=== PATIENT | female | born 1930 | race Caucasian/White ===

== ENCOUNTER 2016-06-27 11:17 | Outpatient (CLI) ==
[2016-05-02 17:49] VITALS: BMI 21.5
[2016-06-28] MEDS ORDERED: BENADRYL 25 MG in SODIUM CHLORIDE 100 ML IV STA ×2 (08:31→08:38)
[2016-06-28] MEDS ORDERED: TYLENOL PO STA (08:32)
[2016-06-28] MEDS ORDERED: LASIX IVP STA ×2 (11:47→15:21)
[2016-06-28 15:13] VITALS: BP 102/56; TEMP 97.9
== END 2016-06-28 15:47 | disposition home or self-care (01) ==
LOC: OUTPT 11:17
PROVIDERS: ATTEND Internal Medicine Hematology & Oncology
DX: D46.A Refractory cytopenia with multilineage dysplasia (principal); D64.9 Anemia, unspecified; I10 Essential (primary) hypertension; E03.9 Hypothyroidism, unspecified; D61.818 Other pancytopenia; K21.9 Gastro-esophageal reflux disease without esophagitis
CPT/HCPCS: 36415; 36430; 86850; 86900; 86922; 96365; 96366; 96367; 96375; 99211

== ENCOUNTER 2016-06-27 11:17 | Outpatient (CLI) ==
[2016-05-02 17:49] VITALS: BMI 21.5
[2016-06-27 12:39] LABS: HEMOGLOBIN 7.5 g/dl (12.0-16.0)
== END 2016-06-27 11:18 | disposition home or self-care (01) ==
LOC: LAB 11:17
PROVIDERS: ATTEND Internal Medicine Hematology & Oncology
DX: D46.A Refractory cytopenia with multilineage dysplasia (principal); D64.9 Anemia, unspecified; I10 Essential (primary) hypertension; E03.9 Hypothyroidism, unspecified; K21.9 Gastro-esophageal reflux disease without esophagitis; D61.818 Other pancytopenia
CPT/HCPCS: 85014; 85018; 86850; 86900; 86922

== ENCOUNTER 2016-08-01 09:40 | Outpatient (CLI) ==
[2016-05-02 17:49] VITALS: BMI 21.5
[2016-08-01 10:16] LABS: HEMOGLOBIN 6.8 g/dl (12.0-16.0); MEAN CORPUSCULAR HEMOGLOBIN 31.5 pg (27.0-31.0); MEAN CORPUSCULAR HGB CONC 33.3 (31.8-35.4); MEAN CORPUSCULAR VOLUME 94.4 fl (81.0-99.0); PLATELET COUNT 35 10^3/uL (140-440); RED BLOOD COUNT 2.16 10^6/ul (4.20-5.40)
[2016-08-01 10:37] LABS: WHITE BLOOD COUNT 1.35 K/ul (4.6-10.2)
[2016-08-01 10:39] LABS: HEMATOCRIT 20.4 % (37.0-47.0)
[2016-08-01 10:44] LABS: ANISOCYTOSIS 1+ (NOT PRESENT)
[2016-08-02] MEDS ORDERED: TYLENOL PO STA (08:21)
[2016-08-02] MEDS ORDERED: BENADRYL 25 MG in SODIUM CHLORIDE 100 ML IV STA (08:22)
--- NOTE | 2016-08-02 08:37 | ED.PDOC ---
Procedures - IV/Art Line Insertion Location: left forearm Type of Line: Peripheral IV Invasive Line/IV Catheter Gauge: 20 Number of Attempts: 1 Blood Return Positive: Yes Invasive Line/IV Flushes Without Difficulty: Yes Conscious Sedation - Pre-op Assessment Weight: 115 lb Surgical History: TONSILLS,RT LEG,--hysterectomy - Medical History Past Medical History: Thyroid, Other Other History: RLS,
[2016-08-02] MEDS ORDERED: LASIX IVP STA ×2 (12:08→15:22)
[2016-08-02 15:16] VITALS: BP 146/73; TEMP 98.2
== END 2016-08-02 08:05 | disposition home or self-care (01) ==
LOC: OUTPT 09:40
PROVIDERS: ATTEND Internal Medicine Hematology & Oncology
DX: D46.A Refractory cytopenia with multilineage dysplasia (principal); D64.9 Anemia, unspecified; I10 Essential (primary) hypertension; E03.9 Hypothyroidism, unspecified; D61.818 Other pancytopenia; K21.9 Gastro-esophageal reflux disease without esophagitis
CPT/HCPCS: 36415; 36430; 85007; 85025; 86850; 86900; 86922; 96365; 96366; 96376; 99211

== ENCOUNTER 2016-08-01 09:40 | Outpatient (CLI) ==
[2016-05-02 17:49] VITALS: BMI 21.5
== END 2016-08-01 09:41 | disposition home or self-care (01) ==
LOC: OUTPT 09:40 → LAB 09:41
PROVIDERS: ATTEND Internal Medicine Hematology & Oncology
DX: D46.A Refractory cytopenia with multilineage dysplasia (principal); D64.9 Anemia, unspecified; I10 Essential (primary) hypertension; E03.9 Hypothyroidism, unspecified; D61.818 Other pancytopenia; K21.9 Gastro-esophageal reflux disease without esophagitis
CPT/HCPCS: 36415; 85007; 85025; 86850; 86900; 86922

== ENCOUNTER 2016-08-08 09:41 | Outpatient (CLI) ==
[2016-05-02 17:49] VITALS: BMI 21.5
[2016-08-08 10:02] LABS: HEMATOCRIT 28.8 % (37.0-47.0); HEMOGLOBIN 9.7 g/dl (12.0-16.0); MEAN CORPUSCULAR HEMOGLOBIN 31.2 pg (27.0-31.0); MEAN CORPUSCULAR HGB CONC 33.7 (31.8-35.4); MEAN CORPUSCULAR VOLUME 92.6 fl (81.0-99.0); RED BLOOD COUNT 3.11 10^6/ul (4.20-5.40)
[2016-08-08 10:26] LABS: ALBUMIN/GLOBULIN RATIO 1.03; ANION GAP 14.3; BILIRUBIN,TOTAL 0.74 mg/dL (0.00-1.20); BUN/CREATININE RATIO 11.42; CALCIUM 9.5 mg/dL (8.2-10.2); CREATININE 0.7 mg/dL (0.60-1.30); POTASSIUM 4.3 mmol/L (3.5-5.10); TOTAL PROTEIN 7.9 g/dL (5.8-8.1)
[2016-08-08 10:32] LABS: WHITE BLOOD COUNT 1.81 K/ul (4.6-10.2)
[2016-08-08 10:33] LABS: ANISOCYTOSIS NOT PRESENT (NOT PRESENT); PLATELET COUNT 29 10^3/uL (140-440)
[2016-08-08 10:34] LABS: PLATELET ESTIMATE 30; RBC MORPHOLOGY COMMENT NORMAL
== END 2016-08-08 09:42 | disposition home or self-care (01) ==
LOC: LAB 09:41
PROVIDERS: ATTEND Internal Medicine
DX: D64.9 Anemia, unspecified (principal)
CPT/HCPCS: 36415; 80053; 85007; 85008; 85025

== ENCOUNTER 2016-08-16 08:44 | Outpatient (CLI) ==
[2016-05-02 17:49] VITALS: BMI 21.5
[2016-08-16 09:07] LABS: BASOPHILS % (AUTO) 0.5 % (0.0-3.0); EOSINOPHILS % (AUTO) 1.1 % (0.0-7.0); HEMATOCRIT 24.9 % (37.0-47.0); HEMOGLOBIN 8.3 g/dl (12.0-16.0); LYMPHOCYTES % (AUTO) 50.5 (10.0-50.0); MEAN CORPUSCULAR HEMOGLOBIN 31.1 pg (27.0-31.0); MEAN CORPUSCULAR HGB CONC 33.3 (31.8-35.4); MEAN CORPUSCULAR VOLUME 93.3 fl (81.0-99.0); MONOCYTES # (AUTO) 0.8 K/uL (0.4-2.0); MONOCYTES % (AUTO) 44.1 (0-10); NEUTROPHILS # (AUTO) 0.1 K/ul (2.0-6.9); NEUTROPHILS % (AUTO) 3.8; RED BLOOD COUNT 2.67 10^6/ul (4.20-5.40)
[2016-08-16 09:28] LABS: ALBUMIN 3.7 g/dL (3.4-5.0); ALBUMIN/GLOBULIN RATIO 0.9; ANION GAP 15.1; BILIRUBIN,TOTAL 0.55 mg/dL (0.00-1.20); BUN/CREATININE RATIO 15.15; CALCIUM 9.3 mg/dL (8.2-10.2); CREATININE 0.66 mg/dL (0.60-1.30); POTASSIUM 4.1 mmol/L (3.5-5.10); TOTAL PROTEIN 7.8 g/dL (5.8-8.1)
[2016-08-16 12:41] LABS: WHITE BLOOD COUNT 1.88 K/ul (4.6-10.2)
[2016-08-16 12:42] LABS: PLATELET COUNT 24 10^3/uL (140-440)
== END 2016-08-16 08:45 | disposition home or self-care (01) ==
LOC: LAB 08:44
PROVIDERS: ATTEND Internal Medicine
DX: C95.00 Acute leukemia of unspecified cell type not having achieved remission (principal); D64.9 Anemia, unspecified
CPT/HCPCS: 36415; 80053; 85025

== ENCOUNTER 2016-08-21 20:58 | Outpatient (CLI) ==
[2016-08-22 01:19] VITALS: BMI 22.1
== END 2016-08-21 20:59 ==
LOC: AMBL 20:58
PROVIDERS: ATTEND Internal Medicine Geriatric Medicine
DX: R55 Syncope and collapse (principal); R11.10 Vomiting, unspecified

== ENCOUNTER 2016-08-21 21:18 | Observation (INO) ==
[2016-08-21] MEDS ORDERED: ZOFRAN 4 MG/2 ML IVP STA (21:22)
[2016-08-21 21:34] LABS: HEMOGLOBIN 6.8 g/dl (12.0-16.0); MEAN CORPUSCULAR HEMOGLOBIN 31.5 pg (27.0-31.0); MEAN CORPUSCULAR VOLUME 92.6 fl (81.0-99.0); RED BLOOD COUNT 2.16 10^6/ul (4.20-5.40); WHITE BLOOD COUNT 2.53 K/ul (4.6-10.2)
[2016-08-21] MEDS ORDERED: SODIUM CHLORIDE 1,000 ML IV STA (21:38)
--- NOTE | 2016-08-21 21:51 | ED.PDOC ---
General ED Provider: Dr. MELITON LINN Chief Complaint: Syncope Stated Complaint: Pt was standing talking to guillermo when said she was having a hot flash. Sat down et slumped over. Had a glassof wine with supper. Was unresponsive approx 30 sec. Hx leukemia. Gets occasional blood transfusions. A/ O on ER arrival. Time Seen by Physician: 21:19 Mode of Arrival: Ambulance Information Source: Patient, Family Exam Limitations: No limitations Primary Care Provider: CRAIG ROBINS Nursing and Triage Documentation Reviewed and Agree: Yes Neurological Complaint Exam - Syncope/Near Syncope Complaint/Exam Onset/Duration: 10 sec Symptoms Are: Resolved Episodes Lasting: Seconds (10) Number of Episodes: 1 Frequency of Episodes: once Episodes Witnessed: Yes Loss of Consciousness: Yes Associated Head Trauma: No Activity at Onset: At rest Aggravating: None Alleviating: Reports: Spontaneous resolution Associated Signs and Symptoms: Reports: Vomiting, Diaphoresis, Lightheadedness, Dizziness, Weakness. Denies: Decreased oral intake, Diarrhea, GI blood loss, Short of air, Chest pain, Palpitations, AMS, Numbness, Headache, Remote head trauma, Recent head trauma Cardiac Risk Factors: Reports: None GI Bleed Risk Factors: Reports: None Dysrhythmia Risk Factors: Reports: None JVD Present: No Carotid Bruit Present: No Rectal Heme Positive: No Glascow Coma Scale (see protocol): 15 Nystagmus Present: No Gag Reflex Present: No Meningeal Signs Positive: No Focal Weakness: Present: None Focal Sensory Loss: Present: None Gait: Normal [id number]: Normal Findings Romberg Test Positive: No Babinski Sign: Negative Right, Negative Left Heel to Toe Normal: No Cameron-Hallpike Test Positive: No Differential Diagnoses: TIA, Hypoglycemia, Metabolic Reaction Quality Indicator For Non-Traumatic Chest Pain/Syncope: EKG Performed Review of Systems - Review Of Systems Constitutional: Reports: Weakness, Loss of appetite Eyes: Reports: No symptoms Ears, Nose, Mouth, Throat: Reports: No symptoms Respiratory: Reports: No symptoms Cardiac: Reports: No symptoms GI: Reports: Nausea, Vomiting : Reports: No symptoms Musculoskeletal: Reports: No symptoms Skin: Reports: No symptoms Neurological: Reports: Anxiety Endocrine: Reports: No symptoms Hematologic/Lymphatic: Reports: No symptoms All Other Systems: Reviewed and Negative Past Medical History - Past Medical History Endocrine: Reports: Hypothyroid, Dyslipidemia (medications) Cardiovascular: Reports: None Respiratory: Reports: None Hematological: Reports: None Gastrointestinal: Reports: None Genitourinary: Reports: None Neuro/Psych: Reports: None Musculoskeletal: Reports: None Cancer: Reports: Other (Leukemia ) Last Menstrual Period: unknown Other Pertinent Past Medical History: restless leg - Surgical History General Surgical History: Reports: Tonsillectomy, Orthopedic (TONSILLS,RT LEG, thyroid rls ) - Family History Family History: Reports: Unknown - Social History Smoking Status: Never smoker Hx Substance Use: No Alcohol Screening: Occasionally Lives: With family Physical Exam - Physical Exam Appearance: Well-appearing, No pain distress, Thin Eyes: JOLANTA, EOMI, Conjunctiva clear ENT: Ears normal, Nose normal, Oropharynx normal Neck: Supple Respiratory: Airway patent, Breath sounds clear, Breath sounds equal, Respirations nonlabored Cardiovascular: RRR, Pulses normal, No rub, No murmur GI/: Soft, Nontender, No masses, Bowel sounds normal, No Organomegaly Musculoskeletal: Normal strength, ROM intact, No edema, No calf tenderness Skin: Warm, Dry, Normal color Neurological: Sensation intact, Motor intact, Reflexes intact, Cranial nerves intact, Alert, Oriented Psychiatric: Mood appropriate, Anxious Interpretation - Radiology Interpretation Radiology Interpretation By: Radiologist Radiology Results: Negative Exam Interpreted: CT Scan (head ) - Welder Assembler Time of Welder Assembler Interpretation: 21:40 Rate: Normal Rhythm: Sinus Ectopy: None - EKG Interpretation Time of EKG #1: 21:38 Rate: Normal Rhythm: Sinus Ectopy: None [place]: [place] ST Segment: Normal Interpretation: Normal EKG Physician Notification - Case Discussed Physician Notified: Dr. Robins Time of Notification: 23:15 (Admit to [facility] for transfusion. ) Critical Care Note - Critical Care Note Total Time (mins): 15 Course - Course Hematology/Chemistry: 08/21/16 21:32 08/21/16 21:32 Orders, Labs, Meds: Lab Review 08/21/16 08/21/16 21:32 23:15 WBC 2.53 L RBC 2.16 L Hgb 6.8 L Hct 20.0 L* MCV 92.6 MCH 31.5 H MCHC 34.0 RDW Coeff of Freddy 16.8 H Plt Count 24 L* Immature Gran % (Auto) Surface Miner Neut % (Auto) Surface Miner Lymph % (Auto) Surface Miner [place] % (Auto) Surface Miner Eos % (Auto) Surface Miner Baso % (Auto) Surface Miner Immature Gran # (Auto) Surface Miner Neut # Surface Miner Lymph # Surface Miner [place] # Surface Miner Eos # Surface Miner Baso # Surface Miner Neutrophils % (Manual) 3.0 L Lymphocytes % (Manual) 52.0 H Monocytes % (Manual) 7.0 Blast Cells 58.0 H Sodium 131 L Potassium 3.9 Chloride 97 L Carbon Dioxide 26 Anion Gap 11.9 BUN 10 Creatinine 0.79 Estimated GFR (MDRD) 69.00 BUN/Creatinine Ratio 12.65 Glucose 102 Calcium 9.3 Total Bilirubin 0.36 AST 14 L ALT 7 L Alkaline Phosphatase 85 Troponin I < 0.0100 Total Protein 7.3 Albumin 3.5 Globulin 3.8 Albumin/Globulin Ratio 0.92 Blood Type O POSITIVE Antibody Screen Negative Crossmatch (AHG) See Detail Orders Category Date Time Status ADMIT PATIENT INPATIENT .TO [facility] (MONITORED BED) ADMISSION 08/21/16 23: 44 Active EKG-(ED ONLY) Stat CARDIO 08/21/16 21:22 Completed ACTIVITY .Up ad Janneth CARE 08/21/16 23:48 Active INTAKE & OUTPUT Q8HR CARE 08/21/16 23:44 Active PRBC LEUKOREDUCED ONCE CARE 08/21/16 23:07 Active TELEMETRY MONITORING TELE CARE 08/21/16 23:45 Active VITAL SIGNS Q4HR CARE 08/21/16 23:48 Active REGULAR DIET DIETARY 08/21/16 Breakfast Ordered ED IV/MEDIPORT/POWERPORT .ONCE EMERGENCY 08/21/16 21:22 Active ED ORTHOSTATIC VITAL SIGNS .ONCE EMERGENCY 08/21/16 21:22 Active BASIC METABOLIC PANEL DAILY@0600 LAB 08/22/16 06:00 Ordered BASIC METABOLIC PANEL DAILY@0600 LAB 08/23/16 06:00 Ordered BASIC METABOLIC PANEL DAILY@0600 LAB 08/24/16 06:00 Ordered BASIC METABOLIC PANEL DAILY@0600 LAB 08/25/16 06:00 Ordered BASIC METABOLIC PANEL DAILY@0600 LAB 08/26/16 06:00 Ordered BASIC METABOLIC PANEL DAILY@0600 LAB 08/27/16 06:00 Ordered BASIC METABOLIC PANEL DAILY@0600 LAB 08/28/16 06:00 Ordered BASIC METABOLIC PANEL DAILY@0600 LAB 08/29/16 06:00 Ordered BASIC METABOLIC PANEL DAILY@0600 LAB 08/30/16 06:00 Ordered BASIC METABOLIC PANEL DAILY@0600 LAB 08/31/16 06:00 Ordered BASIC METABOLIC PANEL DAILY@0600 LAB 09/01/16 06:00 Ordered BASIC METABOLIC PANEL DAILY@0600 LAB 09/02/16 06:00 Ordered BASIC METABOLIC PANEL DAILY@0600 LAB 09/03/16 06:00 Ordered BASIC METABOLIC PANEL DAILY@0600 LAB 09/04/16 06:00 Ordered BASIC METABOLIC PANEL DAILY@0600 LAB 09/05/16 06:00 Ordered BASIC METABOLIC PANEL DAILY@0600 LAB 09/06/16 06:00 Ordered BASIC METABOLIC PANEL DAILY@0600 LAB 09/07/16 06:00 Ordered BASIC METABOLIC PANEL DAILY@0600 LAB 09/08/16 06:00 Ordered BASIC METABOLIC PANEL DAILY@0600 LAB 09/09/16 06:00 Ordered BASIC METABOLIC PANEL DAILY@0600 LAB 09/10/16 06:00 Ordered CBC W/ AUTO DIFF DAILY@0600 LAB 08/22/16 06:00 Ordered CBC W/ AUTO DIFF DAILY@0600 LAB 08/23/16 06:00 Ordered CBC W/ AUTO DIFF DAILY@0600 LAB 08/24/16 06:00 Ordered CBC W/ AUTO DIFF DAILY@0600 LAB 08/25/16 06:00 Ordered CBC W/ AUTO DIFF DAILY@0600 LAB 08/26/16 06:00 Ordered CBC W/ AUTO DIFF DAILY@0600 LAB 08/27/16 06:00 Ordered CBC W/ AUTO DIFF DAILY@0600 LAB 08/28/16 06:00 Ordered CBC W/ AUTO DIFF DAILY@0600 LAB 08/29/16 06:00 Ordered CBC W/ AUTO DIFF DAILY@0600 LAB 08/30/16 06:00 Ordered CBC W/ AUTO DIFF DAILY@0600 LAB 08/31/16 06:00 Ordered CBC W/ AUTO DIFF DAILY@0600 LAB 09/01/16 06:00 Ordered CBC W/ AUTO DIFF DAILY@0600 LAB 09/02/16 06:00 Ordered CBC W/ AUTO DIFF DAILY@0600 LAB 09/03/16 06:00 Ordered CBC W/ AUTO DIFF DAILY@0600 LAB 09/04/16 06:00 Ordered CBC W/ AUTO DIFF DAILY@0600 LAB 09/05/16 06:00 Ordered CBC W/ AUTO DIFF DAILY@0600 LAB 09/06/16 06:00 Ordered CBC W/ AUTO DIFF DAILY@0600 LAB 09/07/16 06:00 Ordered CBC W/ AUTO DIFF DAILY@0600 LAB 09/08/16 06:00 Ordered CBC W/ AUTO DIFF DAILY@0600 LAB 09/09/16 06:00 Ordered CBC W/ AUTO DIFF DAILY@0600 LAB 09/10/16 06:00 Ordered CBC W/ AUTO DIFF Stat LAB 08/21/16 21:32 Completed COMPREHENSIVE METABOLIC PANEL Stat LAB 08/21/16 21:32 Completed MANUAL DIFFERENTIAL Stat LAB 08/21/16 21:32 Completed PRBC Transfusion [PACKED CELLS] Stat LAB 08/21/16 23:15 Results TROPONIN I Stat LAB 08/21/16 21:32 Completed TYPE AND SCREEN Stat LAB 08/21/16 23:15 Results 0.9 % Sodium Chloride [Saline Flush] MEDS 08/21/16 21:22 Ordered 1 syr IVF PRN PRN Diphenhydramine Inj [Benadryl] MEDS 08/21/16 23:44 Ordered 12.5 mg IVP Q6H PRN Hydrocodone Bit/Acetaminophen [[place] 5-325] MEDS 08/21/16 23:51 Ordered 1 tab PO Q6HR PRN Levothyroxine Sodium [Synthroid] MEDS 08/22/16 09:00 Ordered 25 mcg PO DAILY Ondansetron HCl/Pf [Zofran 4 mg/2 ml] MEDS 08/21/16 21:22 Discontinued 4 mg IVP ONCE STA Ondansetron HCl/Pf [Zofran 4 mg/2 ml] MEDS 08/21/16 23:44 Ordered 4 mg IVP Q6H PRN Ropinirole HCl [Requip] MEDS 08/22/16 09:00 Ordered 1 mg PO DAILY Simvastatin [Simvastatin] MEDS 08/22/16 09:00 Ordered 20 mg PO DAILY Sodium Chloride 0.9% [Sodium Chloride] 1,000 ml MEDS 08/21/16 21:38 Discontinued IV BOLUS RESUSCITATION STATUS Routine OTHERS 08/21/16 23:[address] HEAD W/O CONTRAST Stat RADS 08/21/16 21:21 Completed Medications Generic Name Dose Route Start Last Admin Trade Name Freq PRN Reason Stop Dose Admin Acetaminophen/Hydrocodone Bitart 1 tab 08/21/16 23:51 [place] 5-325 PO Q6HR PRN MODERATE PAIN Diphenhydramine HCl 12.5 mg 08/21/16 23:44 Benadryl IVP Q6H PRN Transfusion reaction Levothyroxine Sodium 25 mcg 08/22/16 09:00 Synthroid PO DAILY ROGER Non-Formulary Medication 20 mg 08/22/16 09:00 Simvastatin [Simvastatin] PO DAILY ROGER Ondansetron HCl 4 mg 08/21/16 23:44 Zofran 4 Mg/2 Ml IVP Q6H PRN Nausea / Vomiting Ropinirole HCl 1 mg 08/22/16 09:00 Requip PO DAILY ROGER Sodium Chloride 1 syr 08/21/16 21:22 08/21/16 23:50 Saline Flush IVF 1 syr PRN PRN Administration To flush IV Discontinued Medications Generic Name Dose Route Start Last Admin Trade Name Freq PRN Reason Stop Dose Admin Sodium Chloride 1,000 mls @ 1,000 mls/hr 08/21/16 21:38 08/21/16 23:49 Sodium Chloride IV 08/21/16 22:37 100 mls/hr BOLUS STA Administration Ondansetron HCl 4 mg 08/21/16 21:22 08/21/16 23:50 Zofran 4 Mg/2 Ml IVP 08/21/16 21:23 Not Given ONCE STA Vital Signs: Temp Pulse Resp BP Pulse Ox 08/21/16 21:24 84 136/63 08/21/16 21:23 78 123/52 L 08/21/16 21:19 98.4 F 76 20 136/63 100 Departure - Departure Time of Disposition: 23:40 Disposition: ADMITTED INPATIENT Discharge Problem: Syncope Anemia Qualifiers: Anemia type: other cause Other causes of anemia: chronic disease, other Qualifier Code: (D63.8) 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
[2016-08-21 22:01] LABS: PLATELET COUNT 24 10^3/uL (140-440)
[2016-08-21 22:02] LABS: ANISOCYTOSIS NOT PRESENT (NOT PRESENT)
[2016-08-21 22:06] LABS: ALANINE AMINOTRANSFERASE 7 U/L (12-78); ALBUMIN 3.5 g/dL (3.4-5.0); ALBUMIN/GLOBULIN RATIO 0.92; ALKALINE PHOSPHATASE 85 U/L (53-141); ANION GAP 11.9; ASPARTATE AMINO TRANSFERASE 14 U/L (15-37); BILIRUBIN,TOTAL 0.36 mg/dL (0.00-1.20); BLOOD UREA NITROGEN 10 mg/dL (7-18); BUN/CREATININE RATIO 12.65; CALCIUM 9.3 mg/dL (8.2-10.2); CARBON DIOXIDE 26 mmol/L (23-31); CHLORIDE 97 mmol/L (98-107); CREATININE 0.79 mg/dL (0.60-1.30); GLUCOSE 102 mg/dL (82-115); POTASSIUM 3.9 mmol/L (3.5-5.10); SODIUM 131 mmol/L (136-145); TOTAL PROTEIN 7.3 g/dL (5.8-8.1)
--- NOTE | 2016-08-21 22:17 | CT ---
EXAM: CT head without contrast. HISTORY: Syncope. PROCEDURE: Contiguous axial CT images of the head without contrast with coronal and sagittal reform ats. FINDINGS: There is mild diffuse cerebral atrophy. The ventricles and basal cisterns are normal in size and configuration. No evidence of mass or midline shift. No intracranial hemorrhage or eviden ce of large vessel infarct. No extra-axial fluid collection. The paranasal sinuses and mastoid air cells are well-aerated. Impression: No intracranial hemorrhage or evidence of large vessel infarct. Mild diffuse cerebral atrophy.
[2016-08-21] MEDS ORDERED: BENADRYL IVP PRN (23:44)
[2016-08-21] MEDS ORDERED: ZOFRAN 4 MG/2 ML IVP PRN (23:44)
[2016-08-21] MEDS ORDERED: NORCO 5-325 PO PRN (23:51)
[2016-08-22 01:19] VITALS: BMI 22.1
[2016-08-22] MEDS ORDERED: SYNTHROID PO SCH ×2 (06:30→09:00)
[2016-08-22] MEDS ORDERED: NON-FORMULARY MEDICATION (Simvastatin [Simvastatin] 20 MG) PO SCH ×22 (09:00)
[2016-08-22 10:10] LABS: HEMATOCRIT 30.4 % (37.0-47.0); HEMOGLOBIN 10.5 g/dl (12.0-16.0); MEAN CORPUSCULAR HEMOGLOBIN 30.4 pg (27.0-31.0); MEAN CORPUSCULAR HGB CONC 34.5 (31.8-35.4); MEAN CORPUSCULAR VOLUME 88.1 fl (81.0-99.0); RED BLOOD COUNT 3.45 10^6/ul (4.20-5.40); WHITE BLOOD COUNT 2.87 K/ul (4.6-10.2)
[2016-08-22 10:40] LABS: BUN/CREATININE RATIO 9.85; CALCIUM 9.4 mg/dL (8.2-10.2); CREATININE 0.71 mg/dL (0.60-1.30); PLATELET COUNT 24 10^3/uL (140-440)
[2016-08-22 10:41] LABS: ANISOCYTOSIS NOT PRESENT (NOT PRESENT)
[2016-08-22 11:30] VITALS: BP 146/72; TEMP 97.8
--- NOTE | 2016-08-22 11:44 | PCM.PROG ---
Addendum entered and electronically signed by MARIA C JOHN 08/23/16 08:58: ASSESSMENT: 3. SEVERE ANEMIA Original Note: Attending Provider: ATTENDING PROVIDER: Dr. CRAIG ROBINS DATE OF SERVICE: 08/22/16 SUBJECTIVE: This 85 year old WHITE/ F was hospitalized 08/22/16. The patient is hospitalized with severe anemia. 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 The patient's psychiatric social worker/oncologist, Dr. Melton, has recommended Hospice due to the stage of her leukemia. The patient presented yesterday with weakness. Hemoglobin was 6.8 with hematocrit of 20. The patient was given two units of PRBCs. REVIEW OF SYSTEMS: CONSTITUTIONAL: No night sweats. No fatigue, malaise, lethargy. No fever or chills. HEENT: Eyes: No visual changes. No eye pain. No eye discharge. ENT: No runny nose. No epistaxis. No sinus pain. No odynophagia. No congestion. RESPIRATORY: No cough, no congestion. No hemoptysis. CARDIOVASCULAR: No angina symptoms. No CHF symptoms. No atypical chest pain for CAD. No palpitations. No shortness of breath. GASTROINTESTINAL: No abdominal pain. No nausea or vomiting. No diarrhea or constipation. No hematemesis. No hematochezia. GENITOURINARY: No urgency. No frequency. No dysuria. No hematuria. No obstructive symptoms. No discharge. No pain. No significant abnormal bleeding. MUSCULOSKELETAL: No musculoskeletal pain; no joint swelling. NEUROLOGICAL: Awake, alert, oriented to time, place and person. No headache. No neck pain. No syncope. No seizures. No dizziness. PSYCHIATRIC: Not anxious. No depression. No suicidal thoughts. No homicidal thoughts. SKIN: No rash. No lesions. No wounds. ENDOCRINE: No unexplained weight loss. No weight gain. HEMATOLOGIC/LYMPHATIC: Anemia. No purpura. No petechiae. No prolonged or excessive bleeding. No palpable lymph nodes. PHYSICAL EXAMINATION: GENERAL: The patient is awake, alert and oriented, lying flat in bed in no distress. VITAL SIGNS: Temperature 98.0 F, Pulse 76, Respiratory Rate 20, BP 138/76, Pulse Ox 98% HEENT: Head normocephalic, atraumatic. Eyes: Extraocular muscles are intact. Pupils are equal, round and reactive to light and accommodation. Ears: No lesions. Nose appeared normal. Throat: No exudate or erythema. NECK: Supple. No JVD, no carotid bruit. No lymphadenopathy or thyromegaly. LUNGS: Clear to auscultation. Percussion note normal. Chest symmetrical. HEART: S1, S2, no S3. No murmurs. No cyanosis or clubbing. No ascites. Pulses: Dorsalis pedis and posterior tibial pulses +1 to +2 both sides. ABDOMEN: Soft. Non-tender. Bowel sounds active. No CVA tenderness. No mass felt. EXTREMITIES: No edema. Full range of motion of all extremities, equal. NEUROLOGIC: No focal deficit. Cranial nerves II through XII are grossly intact. No headache, no double vision or headache. SKIN: Not dry. Intact. Turgor-normal. LYMPHATIC: No palpable lymph nodes/no lymphedema. MUSCULOSKELETAL: Normal joints with no swelling. Muscle tone is normal. ASSESSMENT: 1. 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 2. Leukopenia, thrombocytopenia. PLAN: 1. Will put on reverse isolation. 2. Will check hemoglobin and hematocrit and CBC with differential after transfusion. 3. Discharge home with supportive measures. Plan and coordination of the patient's care discussed in the presence of Cps Team Lead and nurse. EDUCATION: Discussed plan of care and treatment with the patient. The patient voices understanding and is in agreement. CONDITION: Stable; the patient's prognosis is extremely poor. SCRIBED BY: MARIA C JOHN Systems Accountant scribed while in presence of service performed by Dr. CRAIG ROBINS on 08/22/16 ([id number])
[2016-08-22] MEDS ORDERED: REQUIP PO SCH (21:00)
[2016-08-22] MEDS ORDERED: ZOCOR PO SCH (21:00)
--- NOTE | 2016-08-23 09:11 | SSS ---
DATE OF SERVICE: 08/22/16 ADMISSION/08/22/16 DISCHARGE -OBSERVATION REASON FOR HOSPITALIZATION: Anemia. HISTORY OF PRESENT ILLNESS: Xnszfe-bam-hull-old white female came to the emergency room with syncopal episode, which was not complete syncope. She felt like she was going to pass out and slumped over but did not lose consciousness, did not hit herself. She probably was a little unresponsive to some extent for 15 to 20 seconds. The patient has history of anemia and acute myelocytic leukemia with 60% or more blasts. She has been given up by hematology/oncologist and was recommended Hospice. The patient's family, daughters, have decided not to accept the Hospice and continue symptomatic treatment along with need for blood transfusion and they want the patient to have this. They do not want any further treatment for thrombocytopenia or any other problems except for blood transfusion. REVIEW OF SYSTEMS: CONSTITUTIONAL: Syncopal type of episode that brought the patient to the emergency room. Positive for weakness and fatigue. No night sweats. No fever or chills. HEENT: Eyes: No visual changes. No eye pain. No eye discharge. ENT: No runny nose. No epistaxis. No sinus pain. No sore throat. No odynophagia. No ear pain. No congestion. RESPIRATORY: No cough, no congestion. No hemoptysis. CARDIOVASCULAR: No angina symptoms. No CHF symptoms. No atypical chest pain for CAD. No palpitations. No shortness of breath. No PND, no orthopnea. GASTROINTESTINAL: No abdominal pain. No nausea or vomiting. No diarrhea or constipation. No hematemesis. No hematochezia. GENITOURINARY: No urgency. No frequency. No dysuria. No hematuria. No obstructive symptoms. No discharge. No pain. No significant abnormal bleeding. MUSCULOSKELETAL: No musculoskeletal pain. No joint swelling. NEUROLOGICAL: Awake, alert, oriented to time, place and person. No headache. No neck pain. No syncope. No seizures. No dizziness. PSYCHIATRIC: Not anxious. No depression. No suicidal thoughts. No homicidal thoughts. SKIN: No rash. No lesions. No wounds. ENDOCRINE: No unexplained weight loss. No weight gain. HEMATOLOGIC/LYMPHATIC: No anemia. No purpura. No petechiae. No prolonged or excessive bleeding. No palpable lymph nodes. PAST MEDICAL/SURGICAL HISTORY: 1. Acute myelocytic leukemia with blastic phase 2. Hypothyroidism 3. Dyslipidemia 4. Generalized osteoarthritis PERSONAL/FAMILY HISTORY/SOCIAL HISTORY: The patient is , lives with her . Nonsmoker. No alcohol abuse. Three daughters, which take care of her. The patient is independent of all activities of daily living. PHYSICAL EXAMINATION: GENERAL: The patient is oriented to time, place and person. VITAL SIGNS: Temperature 98.4, pulse 80/min, respiratory rate 20, BP 136/63, pulse ox 100%. HEENT: Head normocephalic, atraumatic. Eyes: Extraocular muscles are intact. Pupils are equal, round and reactive to light and accommodation. Ears: No lesions. Nose appeared normal. Throat: No exudate or erythema. Looks somewhat pale. NECK: Supple. No JVD, no carotid bruit. No lymphadenopathy or thyromegaly. LUNGS: Decreased breath sounds but clear to auscultation. Percussion note normal. Chest symmetrical. HEART: S1, S2, no S3. No murmurs. No cyanosis or clubbing. No ascites. Pulses: Dorsalis pedis and posterior tibial pulses +1 to +2 both sides. ABDOMEN: Soft. Nontender. Bowel sounds active. No CVA tenderness. No mass felt. EXTREMITIES: No edema. Full range of motion of all extremities, equal. NEUROLOGIC: No focal deficit. Cranial nerves II through XII are grossly intact. No headache, no double vision or headache. SKIN: Not dry. Intact. Turgor - normal. LYMPHATIC: No palpable lymph nodes/no lymphedema. MUSCULOSKELETAL: Normal joints with no swelling. Muscle tone is normal. Old/present records reviewed Office records reviewed. ALLERGIES: NKDA MEDICATIONS: 1. Levothyroxine 25 mcg p.o. daily 2. Requip 1 mg daily 3. Simvastatin 20 mg p.o. daily 4. [place] 5/325 mg two tablets q.6hr BRIEF HOSPITAL COURSE: The patient was given two units of packed red cells. Hemoglobin went up to 10.4 with hematocrit of 32. The patient felt a lot better. Appetite has improved. Again, this is to keep her hemoglobin and hematocrit up. The patient's family knows that she has thrombocytopenia and there is no treatment for that the present time and they don't want any treatment in the way of platelet transfusion. Continue to give blood transfusion as needed. She is extremely high risk for any infection because of leukopenia with blastic stage. The family knows about it and the precaution for preventing infection discussed with them. LABS/EKG'S/X-RAY/ECHO/AB08/22/16 WBC 2.87, RBC 3.45, Hgb 10.5, HCT 30.4, platelet count 24. Blast cells 70.0. Chemistry: Sodiumn 135, potassium 4.0, chloride 99, carbon dioxide 25, BUN 7, creatinine 0.71. PROGRESS NOTES: See EMR. DIAGNOSES: 1. SEVERE ANEMIA WITH ACUTE MYELOBLASTIC LEUKEMIA 2. HYPOTHYROIDISM 3. HYPERLIPIDEMIA 4. GENERALIZED OSTEOARTHRITIS PLAN: 1. Followup appointment with Dr. Dennis on 08/26/16 at 10 a.m. 2. Continue all current medications. 3. No prescriptions given. 4. Diet as tolerated. 5. Activity - gradually resume as tolerated. 6. Avoid crowds. CONDITION AT TIME OF DISCHARGE: STABLE TIME SPENT: More than 70 minutes. MTDD
== END 2016-08-22 14:52 | disposition home or self-care (01) ==
LOC: ED 21:18 → INTOOBSV 08-22 00:02 → SCU 08-22 00:02
PROVIDERS: ADMIT Internal Medicine; ATTEND Internal Medicine
DX: C92.Z0 Other myeloid leukemia not having achieved remission (principal); D63.8 Anemia in other chronic diseases classified elsewhere; R55 Syncope and collapse; E03.9 Hypothyroidism, unspecified; E78.5 Hyperlipidemia, unspecified; M15.9 Polyosteoarthritis, unspecified; Z79.899 Other long term (current) drug therapy
CPT/HCPCS: 36415; 36430; 80048; 80053; 84484; 85007; 85025; 86850; 86900; 86922; 87081; 93005; 93010; 96360; 99284

== ENCOUNTER 2016-08-29 10:49 | Outpatient (CLI) ==
[2016-08-29 11:24] LABS: HEMATOCRIT 28.4 % (37.0-47.0); HEMOGLOBIN 9.7 g/dl (12.0-16.0); MEAN CORPUSCULAR HEMOGLOBIN 30.4 pg (27.0-31.0); MEAN CORPUSCULAR HGB CONC 34.2 (31.8-35.4); RED BLOOD COUNT 3.19 10^6/ul (4.20-5.40); WHITE BLOOD COUNT 5.33 K/ul (4.6-10.2)
[2016-08-29 11:28] LABS: ALBUMIN 3.5 g/dL (3.4-5.0); ALBUMIN/GLOBULIN RATIO 0.78; ANION GAP 12.1; BILIRUBIN,TOTAL 0.56 mg/dL (0.00-1.20); BUN/CREATININE RATIO 14.49; CALCIUM 9.5 mg/dL (8.2-10.2); CREATININE 0.69 mg/dL (0.60-1.30); POTASSIUM 4.1 mmol/L (3.5-5.10)
[2016-08-29 12:01] LABS: PLATELET COUNT 19 10^3/uL (140-440)
[2016-08-29 12:02] LABS: ANISOCYTOSIS NOT PRESENT (NOT PRESENT)
== END 2016-08-29 10:50 | disposition home or self-care (01) ==
LOC: LAB 10:49
PROVIDERS: ATTEND Internal Medicine
DX: C95.00 Acute leukemia of unspecified cell type not having achieved remission (principal)
CPT/HCPCS: 36415; 80053; 85007; 85025